=== PATIENT | female | born 1990 | race Caucasian/White ===

== ENCOUNTER 2021-01-22 05:30 | Inpatient (IN) ==
[2021-01-22] MEDS ORDERED: ALBUT/IPRATROP 3MG/0.5MG NEB 3 ML VIAL INH STA (05:42)
[2021-01-22] MEDS ORDERED: SODIUM CHLORIDE 0.9% 1000ML 1,000 ML IV SCH (05:45)
[2021-01-22 06:21] LABS: Basophils # (auto) 0.01 K/uL (0-0.2); Basophils % (auto) 0.1 %; Hematocrit (blood only) 39.8 % (37-47); Hemoglobin 13.3 g/dL (12.0-16.0); Immature Granulocytes # (auto) 0.03 K/uL (0.00-0.02); Immature Granulocytes % (auto) 0.3 %; Lymphocytes # (auto) 2.23 K/uL (1.2-3.4); Mean Corpuscular Hemoglobin 30.6 pg (25-34); Mean Corpuscular Hgb Conc 33.4 g/dL (32-36); Mean Corpuscular Volume 91.7 fL (80-100); Mean Platelet Volume 10.5 fL (7.4-10.4); Monocytes # (auto) 0.29 K/uL (0.11-0.59); Neutrophils # (auto) 7.12 K/uL (1.4-6.5); Neutrophils % (auto) 73.6 %; Platelet Count 192 K/uL (130-400); RDW Coefficient of Variation 12.4 % (11.5-14.5); RDW Standard Deviation 41.8 fL (36.4-46.3); Red Blood Count 4.34 M/uL (4.2-5.4); White Blood Count 9.68 K/uL (4.8-10.8)
[2021-01-22 06:29] LABS: D Dimer 240 ug/L FEU (0-500)
[2021-01-22] MEDS ORDERED: OPTIRAY 320 125ml IV ONE (06:31)
[2021-01-22 06:40] LABS: Albumin Level 2.8 gm/dl (3.4-5.0); BUN Creatinine Ratio 7.1 (10-20); Calcium 8.5 mg/dl (8.5-10.1); Est GFR (African American) 133.8 ml/min; Est GFR (Non-African American) 115.5 ml/min
[2021-01-22 06:43] LABS: Albumin Globulin Ratio 0.6 (0.9-2); Bilirubin,Total 0.5 mg/dl (0.2-1); Globulin 4.7 gm/dl (2.5-4.0); Total Protein 7.5 gm/dl (6.4-8.2)
[2021-01-22 06:51] LABS: Pregnancy Test, Serum Negative (Negative)
[2021-01-22 06:58] LABS: Appearance Urine Clear (Clear); Bilirubin Urine Negative (Negative); Blood Urine Negative (Negative); Color Urine Yellow; Glucose Urine UA Negative (Negative); Ketones Urine Negative (Negative); Leukocyte Esterase Urine Negative (Negative); Nitrite Urine Negative (Negative); Protein Urine Negative (Negative); Specific Gravity Urine 1.004 (1.000-1.030); Urobilinogen Urine Negative (Negative); pH Urine 7.5 (4.5-7.5)
--- NOTE | 2021-01-22 07:16 | CT Scan Report ---
CHEST CTA for PULMONARY ARTERIES CT DOSE: 842.69 mGy.cm HISTORY: Dyspnea TECHNIQUE: Multiaxial CT images of the chest were performed following the intravenous administration of contrast to evaluate the pulmonary arteries. Maximal intensity projection images were also obtaine d. A dose lowering technique was utilized adhering to the principles of ALARA. COMPARISON STUDY: None. FINDINGS: Normal caliber thoracic aorta with no evidence for dissection. Limited views of the upper a bdomen demonstrate hepatic steatosis and a normal spleen. The adrenal glands are unremarkable. Border line mediastinal and hilar lymphadenopathy. This is likely reactive. Normal esophagus. The heart is n ormal in size. No pleural or pericardial effusions. No filling defects within the pulmonary arteries to suggest a pulmonary embolus. No fractures within the visualized osseous structures. The central ai rways are patent. No pneumothorax. There are multifocal patchy groundglass airspace opacities most pr onounced within the upper lobes. This is consistent with a viral pneumonia. IMPRESSION: 1. No evidence for pulmonary embolus. 2. Multifocal bilateral groundglass airspace opacities consistent with a viral pneumonia. ACT 112: Negative or not required by law. Electronically signed by: Chilo Acharya M.D. 01/22/2021 7:14 AM
--- NOTE | 2021-01-22 10:47 | Emergency Department Note ---
ED Visit Note Patient is a 30-year-old female who presented to the ER and was seen and evaluated by Dr. De La Cruz. Patient remained in the ER with discharge in structions in place but was never flipped the DCR. Patient requested to see a doctor and Dr. De La Cruz had gone home at this time. Patient notes that she is feeling worse she does have a headache and diffuse pains. Blood work was reviewed by myself as well as remainder of work-up. BMP along with LFTs bilirubin was under remarkable. Patient did not have a troponin done but EKG was unremarkable. She did have a CT angio which showed infiltrates but no PE. She was ambulated in the room to make sure she did not drop her pulse ox and following this she was discharged as previously set forth by Dr. De La Cruz. .
[2021-01-22] MEDS ORDERED: ACETAMINOPHEN 500 MG TAB PO STA (11:04)
[2021-01-22] MEDS ORDERED: POTASSIUM CHLORIDE CRTAB 20 MEQ TABCR PO STA (11:43)
--- NOTE | 2021-01-22 11:58 | History & Physical Report ---
Date of Service January 22, 2021 Assessment & Plan (1) Pneumonia due to COVID-19 virus: Plan: Given significant CRP 10.7 will give increased dose of dexamethasone 10mg IV today and repeat CRP tomorrow. Will continue dexamethasone 6mg IV daily for now Procalcitonin negative - no further antibiotics required Guaifenesin 1200mg PO BID Encourage proning Avoid further nebulizers due to tachycardia Avoid further aggressive IV fluids - possible reason for currently feeling worse (2) Sinus tachycardia: Plan: No PE. Suspect response to virus rather than significant dehydration given BUN and Cr results Avoid further agressive (3) Hypoxia: Plan: Borderline 93-94% at rest but 85% on minimal exertion Secondary to COVID-19 pneumonia 2 step ordered for tomorrow for possible discharge is stable (4) Nausea: Plan: Ondansetron 4mg q4h PRN Plan: VTE Prophylaxis - Lovenox 40mg SQ daily Diet - regular Disposition - admit to med/surg Admission and Anticipated Discharge Date Admission Date: January 22, 2021 History of Present Illness Chief Complaint: Shortness of breath Primary Care Provider: SCARLETT Mckeon Lynne Arguello is a 30 year old female who presents to the ER due to shortness of breath with known COVID-19 pneumonia. Symptoms started on January 12, 2021, currently day 11 of illness. On 01/14 she was prescribed a medrol dosepak and azithromycin. This is her second ER visit. She was previously seen 4 days previously and treated with 2L NS, ondansetron, acetaminophen, guaifenesin, dexamethasone 10mg IV. She was prescribed a 10 day course of dexamethasone 6mg PO, famotidine and ondansetron. Last few days felt like she was slightly getting worse with her shortness of breath therefore decided to come back to the ER. Had a lot of trouble sleeping last night and shortness of breath on only mild exertion. Stairs especially difficult. Small amount of diarrhea. Headache. Nasal congestion. Tightness in her chest. Nebulizer here made her feel worse. Appetite decreased. Loss and change of taste and smell. No fever, chills, sinus pain or abdominal pain. In the ER on this occasion she was given 1L NSS as concerned about dehydration with tachycardia, CTA negative for pulmonary emboli. She has not taken any dexamethasone today. Initial plan was to discharge home but she desaturates to mid 80s on light exertion therefore she was referred to medicine for admission and ongoing management. Allergies Allergy/AdvReac Type Severity Reaction Status Date / Time oxycodone Allergy Intermediate Nausea/Vomi Verified 01/22/21 16:03 ting Home Medications Medication Instructions Recorded Confirmed Type acetaminophen 500 mg capsule 10,000 mg PO Q6H PRN 01/18/21 01/22/21 History albuterol sulfate 90 mcg/actuation 1 inh INHALATION QID PRN 01/18/21 01/22/21 History aerosol inhaler azithromycin 250 mg tablet 250 mg PO DIRECTED 01/18/21 01/22/21 History dexamethasone 6 mg tablet 6 mg PO DAILY #10 tab 01/18/21 01/22/21 Rx famotidine 20 mg tablet 20 mg PO BID #20 tab 01/18/21 01/22/21 Rx norgestimate 0.18 mg/0.215 mg/0.25 1 tab PO PM 01/18/21 01/22/21 History mg-ethinyl estradiol 25 mcg tablet (Sit-Ya-Pwgmqeuir) ondansetron 4 mg disintegrating 4 mg PO Q6H PRN #14 tab 01/18/21 01/22/21 Rx tablet Past Med/Surg History Medical History Exposure to sexually transmitted disease (STD) History of miscarriage Morbid obesity with BMI of 40.0-44.9, adult Surgical History Hx of oral surgery S/P cholecystectomy Family History Mother Anaplastic astrocytoma Grandmother (Maternal) Colorectal cancer Myocardial infarction Grandfather (Maternal) Myocardial infarction Sister Ovarian cyst Social History Smoking Status: Former smoker Tobacco Type: Cigarettes packs per day: 1.5; Hx Alcohol Use: No Hx Substance Use: No Preferred Language: Spanish Communication Ability: Effective Visual Impairment: No Limitations Hearing Ability: Normal Flute Polisher Required: No Beliefs That Will Affect Care: None marital status: Current Living Situation: Spouse current occupational status: employed Feels Safe at Home: Yes Safety Concerns: Feels Safe At This Time Childhood Exposure to Second-Hand Smoke: No Dental Care, Regularly: Yes Physical Activity Frequency: 1-2 Times per Week Seatbelt Use: always Assistive Devices: Glasses Review of Systems Review of Systems: All systems reviewed & are unremarkable except as noted in HPI & below Physical Exam Constitutional: WD/WN, vitals as above + morbidly obese Eyes: + anicteric sclerae; normal pupil size Respiratory: normal respiratory effort, lungs clear to auscultation Cardiovascular: Rate/Rhythm: regular rhythm and + tachycardic Heart Sounds: no murmur Extremities: normal capillary refill; no pedal edema Gastrointestinal (Abdomen): normal bowel sounds, soft, nontender, no hepatosplenomegaly Musculoskeletal: no cyanosis or clubbing, extremities motor strength 5/5 Skin: no rashes, warm and dry Neurologic: moves all extremities and awake; not confused Psychiatric: A+Ox3, euthymic affect Results & Data Results & Data ([facility]) Vital Signs (Past 12 Hours) Vital Signs Temp Pulse Pulse Pulse Resp Resp BP 01/22/21 11:26 123 H 28 H 01/22/21 11:18 118 H 30 H 01/22/21 10:02 113 H 24 01/22/21 09:00 107 H 21 122/86 01/22/21 08:52 112 H 24 01/22/21 08:01 01/22/21 07:21 36.8 C 134 H 26 H 01/22/21 07:00 123 H 25 H 132/86 01/22/21 06:40 01/22/21 06:13 20 01/22/21 06:06 01/22/21 06:05 103 H 16 112/80 01/22/21 05:36 36 C L 116 H 18 107/80 BP Pulse Ox Pulse Ox 01/22/21 11:26 128/100 91 01/22/21 11:18 88 L 01/22/21 10:02 93 01/22/21 09:00 93 01/22/21 08:52 132/100 92 01/22/21 08:01 91 01/22/21 07:21 124/91 91 01/22/21 07:00 93 01/22/21 06:40 91 01/22/21 06:13 98 01/22/21 06:06 93 01/22/21 06:05 100 01/22/21 05:36 92 Diagnostic Findings XR chest 1V portable HISTORY: 30 years-old Female Chest Pain acute atypical chest pain COMPARISON: Chest radiograph 08/29/2008 TECHNIQUE: Portable AP view of the chest FINDINGS: Cardiomediastinal and hilar silhouettes are within normal limits. Mild coarsening of interstitium is likely secondary to patient body habitus. No pneumothorax, pleural effusion, airspace consolidation or overt pulmonary edema. The bones of the chest appear grossly intact. IMPRESSION: No acute process. CHEST CTA for PULMONARY ARTERIES CT DOSE: 842.69 mGy.cm HISTORY: Dyspnea TECHNIQUE: Multiaxial CT images of the chest were performed following the intravenous administration of contrast to evaluate the pulmonary arteries. Maximal intensity projection images were also obtained. A dose lowering technique was utilized adhering to the principles of ALARA. COMPARISON STUDY: None. FINDINGS: Normal caliber thoracic aorta with no evidence for dissection. Limited views of the upper abdomen demonstrate hepatic steatosis and a normal spleen. The adrenal glands are unremarkable. Borderline mediastinal and hilar lymphadenopathy. This is likely reactive. Normal esophagus. The heart is normal in size. No pleural or pericardial effusions. No filling defects within the pulmonary arteries to suggest a pulmonary embolus. No fractures within the visualized osseous structures. The central airways are patent. No pneumothorax. There are multifocal patchy groundglass airspace opacities most pronounced within the upper lobes. This is consistent with a viral pneumonia. IMPRESSION: 1. No evidence for pulmonary embolus. 2. Multifocal bilateral groundglass airspace opacities consistent with a viral pneumonia. Medications Administered ER medications given: NSS 1L bolus Duonebs ECG Indication: SOB/dyspnea Rate (beats per minute): 114 Rhythm: sinus tachycardia Findings: no acute ischemic change Comparison ECG Date: from (January 18, 2021) Change: no significant change Code Status & VTE Plan Code Status Full VTE Prophylaxis Plan VTE Prophylaxis will be ordered: Yes PG Care Time/CCT Total # of Minutes Spent Total Time Spent with Patient: Total time spent is greater than 50% in coordination of care (as documented) at patient's floor/unit and/or counseling patient: Coding Level of Care Code 57021 Initial Inpt Care Lvl 2 Diagnoses Pneumonia due to COVID-19 virus U07.1; J12.82 Sinus tachycardia R00.0 Hypoxia R09.02 Nausea R11.0
[2021-01-22] MEDS ORDERED: dexAMETHasone 10 MG in SYRINGE 0 ML IV STA (13:04)
[2021-01-22] MEDS ORDERED: DEXAMETHASONE SOD INJ 4 MG/ML VIAL IV STA (13:06)
--- NOTE | 2021-01-22 18:18 | Emergency Department Note ---
History of Present Illness General Chief complaint: Respiratory Problems Stated complaint: COVID+,FEVER,BREATHING TROUBLE Time Seen by Provider: 01/22/21 05:44 Source: patient and RN notes reviewed Mode of arrival: ambulatory Limitations: no limitations History of Present Illness Provider complaint: Covid, shortness of breath Maximum Pain Intensity: 4 This patient is a 30-year-old female who presents emergency department with complaints of worsening shortness of breath after being diagnosed with Covid. Patient states she developed symptoms about 10 days ago, tested positive for days ago. Yesterday she developed worsening shortness of breath. She has been taking dexamethasone and azithromycin as well as albuterol without significant improvement. Patient has had some fevers, body aches and fatigue. She has had some occasional diarrhea but denies any vomiting. She complains of decreased appetite. Home Medications Medication Instructions Recorded Confirmed Type acetaminophen 500 mg capsule 10,000 mg PO Q6H PRN 01/18/21 01/22/21 History albuterol sulfate 90 mcg/actuation 1 inh INHALATION QID PRN 01/18/21 01/22/21 History aerosol inhaler azithromycin 250 mg tablet 250 mg PO DIRECTED 01/18/21 01/22/21 History dexamethasone 6 mg tablet 6 mg PO DAILY #10 tab 01/18/21 01/22/21 Rx famotidine 20 mg tablet 20 mg PO BID #20 tab 01/18/21 01/22/21 Rx norgestimate 0.18 mg/0.215 mg/0.25 1 tab PO PM 01/18/21 01/22/21 History mg-ethinyl estradiol 25 mcg tablet ([id number]) ondansetron 4 mg disintegrating 4 mg PO Q6H PRN #14 tab 01/18/21 01/22/21 Rx tablet Allergies Allergy/AdvReac Type Severity Reaction Status Date / Time oxycodone Allergy Intermediate Nausea/Vomi Verified 01/22/21 16:03 ting Past Med/Surg History Medical History Exposure to sexually transmitted disease (STD) History of miscarriage Morbid obesity with BMI of 40.0-44.9, adult Surgical History Hx of oral surgery S/P cholecystectomy Family History Mother Anaplastic astrocytoma Grandmother (Maternal) Colorectal cancer Myocardial infarction Grandfather (Maternal) Myocardial infarction Sister Ovarian cyst Social History Smoking Status: Former smoker Tobacco Type: Cigarettes packs per day: 1.5; Hx Alcohol Use: No Hx Substance Use: No Preferred Language: Taiwanese Communication Ability: Effective Visual Impairment: No Limitations Hearing Ability: Normal Beliefs That Will Affect Care: None marital status: current occupational status: employed Feels Safe at Home: Yes Childhood Exposure to Second-Hand Smoke: No Dental Care, Regularly: Yes Physical Activity Frequency: 1-2 Times per Week Seatbelt Use: always Review of Systems See HPI for pertinent positives & negatives. and A total of 10 systems reviewed and were otherwise negative Physical Exam Vital Signs Vital Signs - 24 hr 01/22/21 05:36 01/22/21 05:55 01/22/21 06:05 Temperature 36 C L Temperature Source Temporal Artery Scan Pulse Rate 116 H 103 H Pulse Rate [Exercises] Pulse Rate [Left Finger] Pulse Rate from SpO2 Sensor 102 H Pulse Rhythm [Left Finger] Pulse Strength [Left Finger] Respiratory Rate 18 16 Respiratory Rate [Exercises] Respiratory Effort / Characteristics Non-Labored Spontaneous Short of Breath Respiratory Depth Normal Blood Pressure 107/80 112/80 Blood Pressure [Left Arm] Blood Pressure Mean 89 90 Blood Pressure Mean [Left Arm] Blood Pressure Position [Left Arm] Pulse Oximetry 92 100 Pulse Oximetry [Exercises] Oxygen Delivery Method Room Air Room Air Room Air Sepsis Recent Fever Within 48 Hours No Sepsis New/Unexplained Change in Mental Status No Sepsis Action Taken by Nursing No Action Required 01/22/21 06:06 01/22/21 06:13 01/22/21 06:40 Temperature Temperature Source Pulse Rate Pulse Rate [Exercises] Pulse Rate [Left Finger] Pulse Rate from SpO2 Sensor 131 H Pulse Rhythm [Left Finger] Pulse Strength [Left Finger] Respiratory Rate 20 Respiratory Rate [Exercises] Respiratory Effort / Characteristics Spontaneous Respiratory Depth Blood Pressure Blood Pressure [Left Arm] Blood Pressure Mean Blood Pressure Mean [Left Arm] Blood Pressure Position [Left Arm] Pulse Oximetry 93 98 91 Pulse Oximetry [Exercises] Oxygen Delivery Method Room Air Room Air Room Air Sepsis Recent Fever Within 48 Hours Sepsis New/Unexplained Change in Mental Status Sepsis Action Taken by Nursing 01/22/21 07:00 01/22/21 07:21 01/22/21 08:01 Temperature 36.8 C Temperature Source Oral Pulse Rate 123 H Pulse Rate [Exercises] Pulse Rate [Left Finger] 134 H Pulse Rate from SpO2 Sensor 113 H Pulse Rhythm [Left Finger] Regular Pulse Strength [Left Finger] Normal Respiratory Rate 25 H 26 H Respiratory Rate [Exercises] Respiratory Effort / Characteristics Non-Labored Respiratory Depth Normal Blood Pressure 132/86 Blood Pressure [Left Arm] 124/91 Blood Pressure Mean 101 134 Blood Pressure Mean [Left Arm] 102 Blood Pressure Position [Left Arm] Pulse Oximetry 93 91 91 Pulse Oximetry [Exercises] Oxygen Delivery Method Room Air Sepsis Recent Fever Within 48 Hours Sepsis New/Unexplained Change in Mental Status Sepsis Action Taken by Nursing 01/22/21 08:52 01/22/21 09:00 01/22/21 10:02 Temperature Temperature Source Pulse Rate 107 H 113 H Pulse Rate [Exercises] Pulse Rate [Left Finger] 112 H Pulse Rate from SpO2 Sensor 107 H Pulse Rhythm [Left Finger] Regular Pulse Strength [Left Finger] Normal Respiratory Rate 24 21 24 Respiratory Rate [Exercises] Respiratory Effort / Characteristics Non-Labored Respiratory Depth Normal Blood Pressure 122/86 Blood Pressure [Left Arm] 132/100 Blood Pressure Mean 98 Blood Pressure Mean [Left Arm] 110 Blood Pressure Position [Left Arm] Sitting Pulse Oximetry 92 93 93 Pulse Oximetry [Exercises] Oxygen Delivery Method Room Air Sepsis Recent Fever Within 48 Hours Sepsis New/Unexplained Change in Mental Status Sepsis Action Taken by Nursing 01/22/21 11:14 01/22/21 11:18 01/22/21 11:26 Temperature Temperature Source Pulse Rate 120 H Pulse Rate [Exercises] 118 H Pulse Rate [Left Finger] 123 H Pulse Rate from SpO2 Sensor Pulse Rhythm [Left Finger] Pulse Strength [Left Finger] Respiratory Rate 25 H 28 H Respiratory Rate [Exercises] 30 H Respiratory Effort / Characteristics Non-Labored Respiratory Depth Normal Blood Pressure 128/100 Blood Pressure [Left Arm] 128/100 Blood Pressure Mean 109 Blood Pressure Mean [Left Arm] 109 Blood Pressure Position [Left Arm] Pulse Oximetry 91 91 Pulse Oximetry [Exercises] 88 L Oxygen Delivery Method Room Air Room Air Sepsis Recent Fever Within 48 Hours Sepsis New/Unexplained Change in Mental Status Sepsis Action Taken by Nursing 01/22/21 12:03 01/22/21 13:00 01/22/21 13:39 Temperature Temperature Source Pulse Rate 98 H 124 H Pulse Rate [Exercises] Pulse Rate [Left Finger] 118 H Pulse Rate from SpO2 Sensor Pulse Rhythm [Left Finger] Regular Pulse Strength [Left Finger] Respiratory Rate 31 H 28 H 26 H Respiratory Rate [Exercises] Respiratory Effort / Characteristics Short of Breath Respiratory Depth Normal Blood Pressure Blood Pressure [Left Arm] Blood Pressure Mean Blood Pressure Mean [Left Arm] Blood Pressure Position [Left Arm] Pulse Oximetry 91 94 90 Pulse Oximetry [Exercises] Oxygen Delivery Method Room Air Room Air Sepsis Recent Fever Within 48 Hours Sepsis New/Unexplained Change in Mental Status Sepsis Action Taken by Nursing 01/22/21 14:00 01/22/21 17:06 01/22/21 18:05 Temperature 37.2 C Temperature Source Oral Pulse Rate 118 H Pulse Rate [Exercises] Pulse Rate [Left Finger] 86 114 H Pulse Rate from SpO2 Sensor Pulse Rhythm [Left Finger] Regular Regular Pulse Strength [Left Finger] Respiratory Rate 33 H 24 24 Respiratory Rate [Exercises] Respiratory Effort / Characteristics Non-Labored Respiratory Depth Normal Normal Blood Pressure Blood Pressure [Left Arm] 128/92 Blood Pressure Mean Blood Pressure Mean [Left Arm] 104 Blood Pressure Position [Left Arm] Pulse Oximetry 91 91 90 Pulse Oximetry [Exercises] Oxygen Delivery Method Room Air Room Air Room Air Sepsis Recent Fever Within 48 Hours Sepsis New/Unexplained Change in Mental Status Sepsis Action Taken by Nursing Vital signs reviewed. General: Well-appearing 30 yo female, in no significant distress. HEENT: No scleral icterus, PERRLA, neck supple. Atraumatic. Cardiovascular: Tachycardic rate and regular rhythm, no extra sounds. Pulmonary: Coarse breath sounds to auscultation bilaterally, slightly increased l work of breathing. Maintaining oxygen saturations at rest on room air around 90 to 91% Abdomen: Soft,obese, nontender, nondistended, positive bowel sounds. Musculoskeletal: Atraumatic, no peripheral edema. Neurologic: Patient awake alert and oriented x 3. Skin: Warm, dry, no rash Course Administered Medications Discontinued Medications Acetaminophen (Acetaminophen 500 Mg Tab) 1,000 mg PO NOW STA Stop: 01/22/21 11:05 Last Admin: 01/22/21 11:14 Dose: 1,000 mg Documented by: [id number] Albuterol (Albut/Ipratrop 3mg/0.5mg Neb 3 Ml Vial) 3 ml INH NOW STA Stop: 01/22/21 05:43 Last Admin: 01/22/21 06:13 Dose: 3 ml Documented by: [id number] Dexamethasone (Dexamethasone Sod Inj 4 Mg/Ml Vial) 10 mg IV NOW STA Stop: 01/22/21 13:07 Last Admin: 01/22/21 13:28 Dose: 10 mg Documented by: [id number] Sodium Chloride (Nss 1000ml) 1,000 mls @ 999 mls/hr IV .Q1H1M ISAAC Stop: 01/22/21 06:45 Last Infusion: 01/22/21 07:26 Dose: 0 mls/hr Documented by: [id number] Admin: 01/22/21 06:01 Dose: 999 mls/hr Documented by: [id number] Ioversol (Optiray 320 125ml) 119 ml IV ONCE ONE Stop: 01/22/21 06:32 Last Admin: 01/22/21 06:35 Dose: 119 ml Documented by: [id number] Potassium Chloride (Potassium Chloride Crtab 20 Meq Tabcr) 40 meq PO NOW STA Stop: 01/22/21 11:44 Last Admin: 01/22/21 13:28 Dose: 40 meq Documented by: [id number] Medical Decision Making Differential Diagnosis Reactive airway disease, pneumonia, pneumothorax, COPD, CHF, infections, cardiac ischemia, pulmonary embolism, musculoskeletal, gastrointestinal, as well as other pathologies. Medical Records Attestation: I reviewed the patient's medical records. Home Medications Current Medication List: was personally reviewed by me Laboratory Data Attestation: I reviewed the patient's lab results. Result diagrams: 01/22/21 05:55 01/22/21 05:55 Lab Results 01/22/21 01/22/21 01/22/21 Range/Units 05:55 05:55 05:55 WBC 9.68 (4.8-10.8) K/uL RBC 4.34 (4.2-5.4) M/uL Hgb 13.3 (12.0-16.0) g/dL Hct 39.8 (37-47) % MCV 91.7 (80-100) fL MCH 30.6 (25-34) pg MCHC 33.4 (32-36) g/dL RDW Std Deviation 41.8 (36.4-46.3) fL RDW Coeff of Tyra 12.4 (11.5-14.5) % Plt Count 192 (130-400) K/uL MPV 10.5 H (7.4-10.4) fL Immature Gran % (Auto) 0.3 % Neut % (Auto) 73.6 % Lymph % (Auto) 23.0 % [place] % (Auto) 3.0 % Eos % (Auto) 0.0 % Baso % (Auto) 0.1 % Neut # (Auto) 7.12 H (1.4-6.5) K/uL Lymph # (Auto) 2.23 (1.2-3.4) K/uL [place] # (Auto) 0.29 (0.11-0.59) K/uL Eos # (Auto) 0.00 (0-0.5) K/uL Baso # (Auto) 0.01 (0-0.2) K/uL Immature Gran # (Auto) 0.03 H (0.00-0.02) K/uL D-Dimer 240 (0-500) ug/L FEU Sodium 134 L (136-145) mmol/L Potassium 3.0 L (3.5-5.1) mmol/L Chloride 103 (98-107) mmol/L Carbon Dioxide 28 (21-32) mmol/L Anion Gap 3.0 (3-11) BUN 5 L (7-18) mg/dl Creatinine 0.70 (0.6-1.2) mg/dl Est Cr Clr Drug Dosing 135.0 ml/min Est GFR ( Amer) 133.8 ml/min Est GFR (Non-Af Amer) 115.5 ml/min BUN/Creatinine Ratio 7.1 L (10-20) Glucose 107 H (70-99) mg/dl Calcium 8.5 (8.5-10.1) mg/dl Total Bilirubin 0.5 (0.2-1) mg/dl AST 20 (15-37) U/L ALT 27 (12-78) U/L Alkaline Phosphatase 57 (45-117) U/L C-Reactive Protein (0-0.29) mg/dl Total Protein 7.5 (6.4-8.2) gm/dl Albumin 2.8 L (3.4-5.0) gm/dl Globulin 4.7 H (2.5-4.0) gm/dl Albumin/Globulin Ratio 0.6 L (0.9-2) Procalcitonin (0-0.5) ng/ml HCG, Qual (Negative) Urine Color Urine Appearance (Clear) Urine pH (4.5-7.5) Ur Specific [place] (1.000-1.030) Urine Protein (Negative) Urine Glucose (UA) (Negative) Urine Ketones (Negative) Urine Blood (Negative) Urine Nitrite (Negative) Urine Bilirubin (Negative) Urine Urobilinogen (Negative) Ur Leukocyte Esterase (Negative) 01/22/21 01/22/21 01/22/21 Range/Units 05:55 06:11 06:11 WBC (4.8-10.8) K/uL RBC (4.2-5.4) M/uL Hgb (12.0-16.0) g/dL Hct (37-47) % MCV (80-100) fL MCH (25-34) pg MCHC (32-36) g/dL RDW Std Deviation (36.4-46.3) fL RDW Coeff of Tyra (11.5-14.5) % Plt Count (130-400) K/uL MPV (7.4-10.4) fL Immature Gran % (Auto) % Neut % (Auto) % Lymph % (Auto) % [place] % (Auto) % Eos % (Auto) % Baso % (Auto) % Neut # (Auto) (1.4-6.5) K/uL Lymph # (Auto) (1.2-3.4) K/uL [place] # (Auto) (0.11-0.59) K/uL Eos # (Auto) (0-0.5) K/uL Baso # (Auto) (0-0.2) K/uL Immature Gran # (Auto) (0.00-0.02) K/uL D-Dimer (0-500) ug/L FEU Sodium (136-145) mmol/L Potassium (3.5-5.1) mmol/L Chloride (98-107) mmol/L Carbon Dioxide (21-32) mmol/L Anion Gap (3-11) BUN (7-18) mg/dl Creatinine (0.6-1.2) mg/dl Est Cr Clr Drug Dosing ml/min Est GFR ( Amer) ml/min Est GFR (Non-Af Amer) ml/min BUN/Creatinine Ratio (10-20) Glucose (70-99) mg/dl Calcium (8.5-10.1) mg/dl Total Bilirubin (0.2-1) mg/dl AST (15-37) U/L ALT (12-78) U/L Alkaline Phosphatase (45-117) U/L C-Reactive Protein 10.70 H (0-0.29) mg/dl Total Protein (6.4-8.2) gm/dl Albumin (3.4-5.0) gm/dl Globulin (2.5-4.0) gm/dl Albumin/Globulin Ratio (0.9-2) Procalcitonin < 0.05 (0-0.5) ng/ml HCG, Qual Negative (Negative) Urine Color Urine Appearance (Clear) Urine pH (4.5-7.5) Ur Specific [place] (1.000-1.030) Urine Protein (Negative) Urine Glucose (UA) (Negative) Urine Ketones (Negative) Urine Blood (Negative) Urine Nitrite (Negative) Urine Bilirubin (Negative) Urine Urobilinogen (Negative) Ur Leukocyte Esterase (Negative) 01/22/21 Range/Units 06:44 WBC (4.8-10.8) K/uL RBC (4.2-5.4) M/uL Hgb (12.0-16.0) g/dL Hct (37-47) % MCV (80-100) fL MCH (25-34) pg MCHC (32-36) g/dL RDW Std Deviation (36.4-46.3) fL RDW Coeff of Tyra (11.5-14.5) % Plt Count (130-400) K/uL MPV (7.4-10.4) fL Immature Gran % (Auto) % Neut % (Auto) % Lymph % (Auto) % [place] % (Auto) % Eos % (Auto) % Baso % (Auto) % Neut # (Auto) (1.4-6.5) K/uL Lymph # (Auto) (1.2-3.4) K/uL [place] # (Auto) (0.11-0.59) K/uL Eos # (Auto) (0-0.5) K/uL Baso # (Auto) (0-0.2) K/uL Immature Gran # (Auto) (0.00-0.02) K/uL D-Dimer (0-500) ug/L FEU Sodium (136-145) mmol/L Potassium (3.5-5.1) mmol/L Chloride (98-107) mmol/L Carbon Dioxide (21-32) mmol/L Anion Gap (3-11) BUN (7-18) mg/dl Creatinine (0.6-1.2) mg/dl Est Cr Clr Drug Dosing ml/min Est GFR ( Amer) ml/min Est GFR (Non-Af Amer) ml/min BUN/Creatinine Ratio (10-20) Glucose (70-99) mg/dl Calcium (8.5-10.1) mg/dl Total Bilirubin (0.2-1) mg/dl AST (15-37) U/L ALT (12-78) U/L Alkaline Phosphatase (45-117) U/L C-Reactive Protein (0-0.29) mg/dl Total Protein (6.4-8.2) gm/dl Albumin (3.4-5.0) gm/dl Globulin (2.5-4.0) gm/dl Albumin/Globulin Ratio (0.9-2) Procalcitonin (0-0.5) ng/ml HCG, Qual (Negative) Urine Color Yellow Urine Appearance Clear (Clear) Urine pH 7.5 (4.5-7.5) Ur Specific [place] 1.004 (1.000-1.030) Urine Protein Negative (Negative) Urine Glucose (UA) Negative (Negative) Urine Ketones Negative (Negative) Urine Blood Negative (Negative) Urine Nitrite Negative (Negative) Urine Bilirubin Negative (Negative) Urine Urobilinogen Negative (Negative) Ur Leukocyte Esterase Negative (Negative) Imaging Data Radiologist's Impression: Chest CTA 01/22/21 05:42 CHEST CTA for PULMONARY ARTERIES CT DOSE: 842.69 mGy.cm HISTORY: Dyspnea TECHNIQUE: Multiaxial CT images of the chest were performed following the intravenous administration of contrast to evaluate the pulmonary arteries. Maximal intensity projection images were also obtained. A dose lowering technique was utilized adhering to the principles of ALARA. COMPARISON STUDY: None. FINDINGS: Normal caliber thoracic aorta with no evidence for dissection. Limited views of the upper abdomen demonstrate hepatic steatosis and a normal spleen. The adrenal glands are unremarkable. Borderline mediastinal and hilar lymphadenopathy. This is likely reactive. Normal esophagus. The heart is normal in size. No pleural or pericardial effusions. No filling defects within the pulmonary arteries to suggest a pulmonary embolus. No fractures within the visualized osseous structures. The central airways are patent. No pneumothorax. There are multifocal patchy groundglass airspace opacities most pronounced within the upper lobes. This is consistent with a viral pneumonia. IMPRESSION: 1. No evidence for pulmonary embolus. 2. Multifocal bilateral groundglass airspace opacities consistent with a viral pneumonia. ACT 112: Negative or not required by law. Electronically signed by: Chilo Acharya M.D. 01/22/2021 7:14 AM ECG Data Attestation: I personally reviewed and interpreted this ECG as follows: Indication: + tachycardia Rate (beats per minute): 114 Rhythm: + sinus tachycardia ECG Intervals/blocks: + Prolonged QT (454) ECG [place]: + Normal ECG ST segments: + Normal ST segments ECG Findings: + LVH; no PACs or no PVCs Blood Pressure Blood Pressure Findings: Normal blood pressure Blood Pressure Disposition: did not require urgent referral MDM Narrative This patient was evaluated and appeared to be in no significant distress. IV access was obtained and laboratory work was drawn. An order for cardiac monitoring was placed and the patient is noted to be in a sinus tachycardia at 119 bpm. Patient was hydrated with normal saline solution and a DuoNeb treatment was given. Patient is already taking dexamethasone. CT angiogram was performed due to the tachycardia, Covid and borderline hypoxia. There is no evidence of PE. Patient's case was referred to the hospitalist service for further management due to hypoxia with exertion. Please see their notes for further details. Impression & Plan Pneumonia due to COVID-19 virus, Hypoxia, Morbid obesity with BMI of 45.0-49.9, adult Discharge Plan Visit Data Chief Complaint: Respiratory Problems Stated Complaint: COVID+,FEVER,BREATHING TROUBLE ED Provider: Yola De La Cruz Discharge Problem: Pneumonia due to COVID-19 virus, Hypoxia, Morbid obesity with BMI of 45.0-49.9, adult Discharge Instructions [place]/Other Patient Handouts: 2019-nCoV, COVID-19 Home Care, Preventing the Spread of ... Forms Stand Alone Forms: My [facility] Prescriptions Prescriptions: No Action acetaminophen [Tylenol Extra Strength] 500 mg Capsule 10,000 mg PO Q6H PRN (Reason: Pain) RF: 0 azithromycin 250 mg tablet 250 mg PO DIRECTED RF: 0 albuterol sulfate 90 mcg/actuation HFA aerosol inhaler 1 inh inhalation QID PRN (Reason: Sob/ wheezing) RF: 0 norgestimate-ethinyl estradiol [Tpb-Xz-Koglbjuhj] 0.18/0.215/0.25 mg-25 mcg tablet 1 tab PO PM RF: 0 dexamethasone 6 mg tablet 6 mg PO DAILY Qty: 10 RF: 0 famotidine 20 mg tablet 20 mg PO BID Qty: 20 RF: 0 ondansetron 4 mg tablet,disintegrating 4 mg PO Q6H PRN (Reason: nausea and vomiting) Qty: 14 RF: 0 Referrals Referrals: Kari Keenan CRNP [Primary Care Provider] -
[2021-01-22] MEDS ORDERED: ALUMINUM/MAGNESIUM SUSP 30 ML UDC PO PRN (21:36)
[2021-01-22] MEDS ORDERED: ONDANSETRON INJ 2 MG/ML 2 ML VIAL IV PRN (21:36)
[2021-01-22] MEDS ORDERED: ENOXAPARIN INJ 40 MG/0.4 ML SYR SQ SCH (22:00)
[2021-01-22] MEDS ORDERED: HYDROcodone/HOMATROPINE SYRUP 5MG/1.5MG 5ML UDP PO PRN (22:41)
[2021-01-23] MEDS: [UNRECOGNIZED DRUG - REMARK] SCH ×3 (03:15→16:26)
[2021-01-23 05:26] LABS: Basophils # (auto) 0.03 K/uL (0-0.2); Basophils % (auto) 0.5 %; Hematocrit (blood only) 39.5 % (37-47); Hemoglobin 12.9 g/dL (12.0-16.0); Immature Granulocytes # (auto) 0.07 K/uL (0.00-0.02); Immature Granulocytes % (auto) 1.2 %; Lymphocytes # (auto) 1.46 K/uL (1.2-3.4); Lymphocytes % (auto) 25.9 %; Mean Corpuscular Hemoglobin 29.3 pg (25-34); Mean Corpuscular Hgb Conc 32.7 g/dL (32-36); Mean Corpuscular Volume 89.8 fL (80-100); Mean Platelet Volume 9.9 fL (7.4-10.4); Monocytes # (auto) 0.34 K/uL (0.11-0.59); Neutrophils # (auto) 3.73 K/uL (1.4-6.5); Neutrophils % (auto) 66.4 %; Platelet Count 202 K/uL (130-400); RDW Coefficient of Variation 12.4 % (11.5-14.5); White Blood Count 5.63 K/uL (4.8-10.8)
--- NOTE | 2021-01-23 05:27 | Electrocardiogram Report ---
Test Reason : Blood Pressure : / mmHG Vent. Rate : 114 BPM Atrial Rate : 114 BPM P-R Int : 152 ms QRS Dur : 072 ms QT Int : 330 ms P-R-T Axes : 025 000 023 degrees QTc Int : 454 ms Sinus tachycardia Moderate voltage criteria for LVH, may be normal variant Borderline ECG When compared with ECG of 18-JAN-2021 13:03, No significant change was found Confirmed by Chintan Hernandez ([id number]) on 01/23/2021 5:27:41 AM Referred By: REFERRED SELF Confirmed By:Chintan Hernandez
[2021-01-23 05:57] LABS: BUN Creatinine Ratio 10.7 (10-20); C Reactive Protein 14.5 mg/dl (0-0.29); Calcium 8.5 mg/dl (8.5-10.1); Creatinine Clr Calc Pharmacy 147.4 ml/min; Est GFR (African American) 137.8 ml/min; Est GFR (Non-African American) 118.9 ml/min; Potassium 3.9 mmol/L (3.5-5.1)
[2021-01-23] MEDS: guaiFENesin 600 MG TABCR PO SCH ×2 (08:37→21:05)
[2021-01-23] MEDS: dexAMETHasone 6 MG in SYRINGE 0 ML IV SCH (08:37)
[2021-01-23] MEDS: FAMOTIDINE 20 MG TAB PO SCH (08:37)
--- NOTE | 2021-01-23 14:40 | Hospitalist Progress Note ---
Date of Service January 23, 2021 Assessment & Plan (1) Pneumonia due to COVID-19 virus: Plan: - CRP uptrending from 10.7 to 14.50. - Continue dexamethasone 10mg IV - Procal negative, uptrending CRP - CTA: No evidence for pulmonary embolus. Multifocal bilateral groundglass airspace opacities consistent with a viral pneumonia. - Cr/BUN wnl - Not requiring high flow, not a toculizumab candidate at this time - Given negative procal, CTA consistent with PNA suspect 2/2 worsening COVID. May consider abx coverage if CRP uptrending, defer at this time. Trend CRP overnight - SpO2 goal >90% - Lovenox covid dosing DVT ppx (2) Sinus tachycardia: Plan: - No PE. - Appears euvolemic, CR/BUN wnl - Suspect 2/2 COVID pna - Defer additional IVF at this time, PO as tolerated (3) Hypoxia: Plan: -Borderline 93-94% at rest but 85% on minimal exertion -Secondary to COVID-19 pneumonia -2 step ordered, pt currently remaining for observation given worsening CRP and ill apperance (4) Nausea: Plan: Ondansetron 4mg q4h PRN Plan: VTE Prophylaxis - Lovenox 40mg SQ daily Diet - regular Disposition - admit to med/surg Admission and Anticipated Discharge Date Admission Date: January 22, 2021 Subjective Sx began ~01/11. Dex/azithro as outpt. Feeling worse last day or two. Feels short of breath worsened with exertion and very anxious. Feels globally fatigued, weak. +diarrhea. -ab pain, -appetite decrease. Review of Systems Review of Systems: Constitutional: Endorses fatigue. Feels cold. No shaking chills. Eyes: Denies double vision, vision change, eye pain ENT: Denies ear pain, sore throat, sinus pain Cardiovascular: Denies Chest pain, chest pressure, palpitations, extremity swelling Respiratory: See HPI. Gastrointestinal: Denies abdominal pain, nausea, vomiting, constipation. + diarrhea Genitourinary: Denies pain with urination, urinary urgency, urinary frequency Musculoskeletal: Denies focal weakness, muscle aches/pain, joint aches/pain Integumentary:Denies rash, lesions, bruising Neurological: Denies numbness, tingling, focal weakness Physical Exam Physical Exam: General: Appears ill, anxious. Nontoxic. A&Ox3. Obese HEENT: Atraumatic, normocephalic. PERLAA. Visual acuity and hearing intact. Pulm: Bibasial crackles, moderate air movement, coarse. -wheeze. Symmetrical chest rise. No increase work of breathing. No respiratory distress. Cardiac: tachycardic, -mrg. Radial pulses intact and symmetrical. Abdominal: Nontender, nondistended, soft. BS present. Skin: Warm, dry. Moving all extremities equally. Results & Data Results & Data ([facility]) Vital Signs (Past 12 Hours) Vital Signs Pulse Pulse Resp BP BP Pulse Ox 01/23/21 13:00 101 H 25 H 01/23/21 12:00 90 32 H 95 01/23/21 11:00 103 H 24 99 01/23/21 10:10 95 H 23 132/91 95 01/23/21 10:09 115 H 18 93 01/23/21 09:00 107 H 19 01/23/21 08:35 92 H 22 128/84 92 01/23/21 08:00 74 15 96 01/23/21 05:36 80 16 137/99 95 01/23/21 04:01 75 17 94 01/23/21 03:00 74 18 94 01/23/21 02:53 80 18 93 PG Care Time/CCT Total # of Minutes Spent Total Time Spent with Patient: Total time spent is greater than 50% in coordination of care (as documented) at patient's floor/unit and/or counseling patient: Coding Level of Care Code 65822 Subseq Hosp Care Lvl 2 Diagnoses Pneumonia due to COVID-19 virus U07.1; J12.82 Sinus tachycardia R00.0 Hypoxia R09.02 Nausea R11.0
[2021-01-23] MEDS: ENOXAPARIN INJ 40 MG/0.4 ML SYR SQ SCH (20:51)
[2021-01-24 06:34] LABS: Hemoglobin 13.1 g/dL (12.0-16.0); Mean Corpuscular Hemoglobin 29.6 pg (25-34); Mean Corpuscular Hgb Conc 33.6 g/dL (32-36); Mean Corpuscular Volume 88.2 fL (80-100); Mean Platelet Volume 10.2 fL (7.4-10.4); Platelet Count 273 K/uL (130-400); RDW Coefficient of Variation 12.1 % (11.5-14.5); RDW Standard Deviation 39.3 fL (36.4-46.3); Red Blood Count 4.42 M/uL (4.2-5.4); White Blood Count 6.43 K/uL (4.8-10.8)
[2021-01-24 07:09] LABS: Albumin Level 2.8 gm/dl (3.4-5.0); BUN Creatinine Ratio 18.6 (10-20); C Reactive Protein 7.14 mg/dl (0-0.29); Calcium 8.7 mg/dl (8.5-10.1); Creatinine Clr Calc Pharmacy 152.1 ml/min; Est GFR (African American) 139.3 ml/min; Est GFR (Non-African American) 120.2 ml/min; Potassium 3.6 mmol/L (3.5-5.1)
[2021-01-24 07:12] LABS: Albumin Globulin Ratio 0.6 (0.9-2); Bilirubin,Total 0.4 mg/dl (0.2-1); Globulin 4.7 gm/dl (2.5-4.0); Total Protein 7.5 gm/dl (6.4-8.2)
[2021-01-24 07:27] LABS: Basophils # (auto) 0.03 K/uL (0-0.2); Basophils % (auto) 0.5 %; Eosinophils # (auto) 0.01 K/uL (0-0.5); Eosinophils % (auto) 0.2 %; Immature Granulocytes # (auto) 0.13 K/uL (0.00-0.02); Lymphocytes # (auto) 2.82 K/uL (1.2-3.4); Lymphocytes % (auto) 43.9 %; Monocytes # (auto) 0.52 K/uL (0.11-0.59); Monocytes % (auto) 8.1 %; Neutrophils # (auto) 2.92 K/uL (1.4-6.5); Neutrophils % (auto) 45.3 %
[2021-01-24] MEDS: ENOXAPARIN INJ 40 MG/0.4 ML SYR SQ SCH ×2 (10:15→20:20)
[2021-01-24] MEDS: dexAMETHasone 6 MG in SYRINGE 0 ML IV SCH (10:15)
[2021-01-24] MEDS: FAMOTIDINE 20 MG TAB PO SCH (10:15)
[2021-01-24] MEDS: guaiFENesin 600 MG TABCR PO SCH ×2 (10:15→20:20)
[2021-01-24] MEDS: ACETAMINOPHEN 325 MG TAB PO PRN (10:20)
--- NOTE | 2021-01-24 17:59 | Hospitalist Progress Note ---
Date of Service January 24, 2021 Assessment & Plan (1) Pneumonia due to COVID-19 virus: Plan: - CRP now downtrending - Continue dexamethasone IV - Procal negative - CTA: No evidence for pulmonary embolus. Multifocal bilateral groundglass airspace opacities consistent with a viral pneumonia. - Cr/BUN wnl - Not requiring high flow, not a toculizumab candidate at this time - SpO2 goal >90% - Lovenox covid dosing DVT ppx With CRP downtrending, patient appears clinically stable at this time. Suspect will have gradually resolving oxygen requirements, respiratory consulted for two-step (2) Sinus tachycardia: Plan: Improved - No PE. - Appears euvolemic, CR/BUN wnl - Suspect 2/2 COVID pna - Defer additional IVF at this time, PO as tolerated (3) Hypoxia: Plan: -Continues to desaturate with exertion -Secondary to COVID-19 pneumonia -2 step ordered, pending eval for home oxygen (4) Nausea: Plan: Ondansetron 4mg q4h PRN Plan: VTE Prophylaxis - Lovenox 40mg SQ daily Diet - regular Disposition - admit to med/surg Admission and Anticipated Discharge Date Admission Date: January 22, 2021 Jeanna Batista is seen at the bedside this afternoon. She is extremely nervous, reports she feels she is breathing "okay "but she is worried about what her progression with Covid will look like and what she should. She is concerned that she is not getting better initially on steroids, per the reports she feels okay in the room. Discussed clinical course, and that she may need to go home with oxygen but as long as she is requiring no more than 3-4 L with exertion she will likely be able to go home with home oxygen and close follow-up. CRP downtrending, discussed with patient. No nausea/vomiting/diarrhea. Review of Systems Review of Systems: Constitutional: Endorses fatigue, denies fever/chills Eyes: Denies vision change ENT: Denies ear pain, sore throat, sinus pain Cardiovascular: Denies Chest pain, chest pressure, palpitations, extremity swelling Respiratory: Endorses some shortness of breath with exertion, shortness of breath without using oxygen. Endorses intermittent cough. Gastrointestinal: Denies abdominal pain, nausea, vomiting, constipation, diarrhe a Genitourinary: Denies dysuria Musculoskeletal: Denies acute focal weakness, muscle aches/pain, joint aches/pain Integumentary:Denies acute rash, lesions, bruising Neurological: Endorses intermittent headache, denies numbness/tingling Physical Exam Physical Exam: General: Appears ill, anxious. Nontoxic. A&Ox3. Obese HEENT: Atraumatic, normocephalic. PERLAA. Visual acuity and hearing intact. Pulm: Bibasilar crackles, moderate air movement, coarse. -wheeze/-rales. Symmetrical chest rise. No increased work of breathing. No respiratory distress. Cardiac: Regular rate and rhythm, -mrg. Radial pulses intact and symmetrical. Abdominal: Nontender, nondistended, soft. BS present. Skin: Warm, dry. Moving all extremities equally. Results & Data Results & Data ([facility]) Vital Signs (Past 12 Hours) Vital Signs Temp Pulse Resp BP Pulse Ox 01/24/21 15:46 36.6 C 79 20 113/79 95 01/24/21 07:06 36.5 C 86 18 118/80 93 PG Care Time/CCT Total # of Minutes Spent Total Time Spent with Patient: Total time spent is greater than 50% in coordination of care (as documented) at patient's floor/unit and/or counseling patient: Coding Level of Care Code 78467 Subseq Hosp Care Lvl 2 Diagnoses Pneumonia due to COVID-19 virus U07.1; J12.82 Sinus tachycardia R00.0 Hypoxia R09.02 Nausea R11.0
[2021-01-24] MEDS: PATIENT'S OWN ORAL CONTRACEPTIVE PO SCH (21:30)
[2021-01-25] MEDS: guaiFENesin 600 MG TABCR PO SCH (07:38)
[2021-01-25] MEDS: dexAMETHasone 6 MG in SYRINGE 0 ML IV SCH (07:38)
[2021-01-25] MEDS: ENOXAPARIN INJ 40 MG/0.4 ML SYR SQ SCH (07:39)
[2021-01-25] MEDS: PATIENT'S OWN ORAL CONTRACEPTIVE PO SCH (07:39)
[2021-01-25] MEDS: FAMOTIDINE 20 MG TAB PO SCH (07:46)
[2021-01-25] MEDS: ACETAMINOPHEN 325 MG TAB PO PRN (10:59)
[2021-01-25 11:00] LABS: Hematocrit (blood only) 39.8 % (37-47); Hemoglobin 13.5 g/dL (12.0-16.0); Mean Corpuscular Hemoglobin 29.7 pg (25-34); Mean Corpuscular Hgb Conc 33.9 g/dL (32-36); Mean Corpuscular Volume 87.5 fL (80-100); Mean Platelet Volume 10.2 fL (7.4-10.4); Platelet Count 317 K/uL (130-400); RDW Coefficient of Variation 12.2 % (11.5-14.5); Red Blood Count 4.55 M/uL (4.2-5.4); White Blood Count 7.75 K/uL (4.8-10.8)
[2021-01-25 11:15] LABS: Basophils # (auto) 0.03 K/uL (0-0.2); Basophils % (auto) 0.4 %; Eosinophils # (auto) 0.03 K/uL (0-0.5); Eosinophils % (auto) 0.4 %; Immature Granulocytes # (auto) 0.29 K/uL (0.00-0.02); Immature Granulocytes % (auto) 3.7 %; Lymphocytes # (auto) 2.59 K/uL (1.2-3.4); Lymphocytes % (auto) 33.4 %; Monocytes % (auto) 5.2 %; Neutrophils # (auto) 4.41 K/uL (1.4-6.5); Neutrophils % (auto) 56.9 %; Polychromasia 1+
[2021-01-25 11:24] LABS: BUN Creatinine Ratio 14.6 (10-20); Calcium 8.9 mg/dl (8.5-10.1); Creatinine Clr Calc Pharmacy 127.5 ml/min; Est GFR (African American) 125.1 ml/min; Potassium 3.8 mmol/L (3.5-5.1)
--- NOTE | 2021-01-25 13:50 | Discharge Summary ---
Date of Service January 25, 2021 Admission HPI Per Admitting Provider Lynne Arguello is a 30 year old female who presents to the ER due to shortness of breath with known COVID-19 pneumonia. Symptoms started on January 12, 2021, currently day 11 of illness. On 01/14 she was prescribed a medrol dosepak and azithromycin. This is her second ER visit. She was previously seen 4 days previously and treated with 2L NS, ondansetron, acetaminophen, guaifenesin, dexamethasone 10mg IV. She was prescribed a 10 day course of dexamethasone 6mg PO, famotidine and ondansetron. Last few days felt like she was slightly getting worse with her shortness of breath therefore decided to come back to the ER. Had a lot of trouble sleeping last night and shortness of breath on only mild exertion. Stairs especially difficult. Small amount of diarrhea. Headache. Nasal congestion. Tightness in her chest. Nebulizer here made her feel worse. Appetite decreased. Loss and change of taste and smell. No fever, chills, sinus pain or abdominal pain. In the ER on this occasion she was given 1L NSS as concerned about dehydration with tachycardia, CTA negative for pulmonary emboli. She has not taken any dexamethasone today. Initial plan was to discharge home but she desaturates to mid 80s on light exertion therefore she was referred to medicine for admission and ongoing management. Admission Exam Per Admitting Provider Constitutional: WD/WN, vitals as above + morbidly obese Eyes: + anicteric sclerae; normal pupil size Respiratory: normal respiratory effort, lungs clear to auscultation Cardiovascular: Rate/Rhythm: regular rhythm and + tachycardic Heart Sounds: no murmur Extremities: normal capillary refill; no pedal edema Gastrointestinal (Abdomen): normal bowel sounds, soft, nontender, no hepatosplenomegaly Musculoskeletal: no cyanosis or clubbing, extremities motor strength 5/5 Skin: no rashes, warm and dry Neurologic: moves all extremities and awake; not confused Psychiatric: A+Ox3, euthymic affect Principal Diagnosis COVID-19 Discharge Exam General: A&Ox3. NAD. Cooperative. Obese habitus. HEENT: Atraumatic, normocephalic. Visual acuity and hearing grossly intact. Pulm: Bibasilar crackles, moderate to good air movement, without wheezes. Symmetrical chest rise. No increase work of breathing. No respiratory distress. Cardiac: RRR, -mrg. Radial pulses intact and symmetrical. Abdominal: Nontender, nondistended, soft. BS present. Discharge Data Allergies Allergy/AdvReac Type Severity Reaction Status Date / Time oxycodone Allergy Intermediate Nausea/Vomi Verified 01/22/21 16:03 ting Consultations 01/22/21 11:37 ED Decision to Admit Stat Ordered Studies 01/22/21 05:42 CT angio chest PE protocol Stat Hospital Course (1) Pneumonia due to COVID-19 virus: Na Arguello is a 30-year-old female who presents to the hospital with shortness of breath and concern for worsening Covid. She was treated with steroids and discharged continue home oxygen as noted below. Pneumonia, 2/2 COVID-19 Covid positive - CTA: No evidence for pulmonary embolus. Multifocal bilateral groundglass airspace opacities consistent with a viral pneumonia. - Cr/BUN wnl - Not requiring high flow, not a toculizumab candidate Patient with negative pro-Radames, but uptrending CRP from 10-14. Held for observation concerning up trended CRP potentially representing bacterial superinfection, CRP down trended and patient clinically improved. No antibiotics indicated at discharge. Was discharged to complete a 10-day course of dexamethasone as outpatient. - SpO2 goal >90%. Two-step completed on day of discharge, patient discharged to continue home oxygen with follow-up to PCP. - Lovenox covid dosing DVT ppx was used. No signs of DVT during admission. (2) Sinus tachycardia: Improved - No PE. - Appears euvolemic, CR/BUN wnl - Suspect 2/2 COVID pna - Defer additional IVF during admission, PO as tolerated (3) Hypoxia: -Continued to desaturate with exertion -Secondary to COVID-19 pneumonia -Patient discharged with home oxygen following two-step (4) Nausea: Ondansetron 4mg q4h PRN was used Total Time Total Time Spent Total Time Spent (In Minutes): Total time spent on day of discharge approximately 30 minutes including direct clinical care, review of labs of images, and documentation Discharge Plan Discharge Items Patient Disposition: Home - Self-Care Reason For Visit: COVID+,FEVER,BREATHING TROUBLE Discharge Diagnosis: Acute hypoxic respiratory failure 2/2 Covid Activity: Per Instructions section Non-emergency contact: Primary Care Provider Call non-emergency contact if: you have any medication questions, your symptoms worsen, your pain is concerning for you and you have a fever Follow-up/Referrals: Kari Keenan CRNP [Primary Care Provider] - Diet: Regular Addtl Attending Provider Instructions: You are seen in the hospital for acute shortness of breath due to Covid pneumonia. You had a residual oxygen requirement at time of discharge. Some patients with COVID require oxygen for several days to weeks as they recover from COVID, and may also have fatigue that lasts for several weeks. You are being discharged with home oxygen, please use oxygen by nasal cannula as needed to maintain an oxygen level greater than 90%. Please note that 100% is not normal, and if your oxygen levels are greater than 96% you should decrease your oxygen. You have been prescribed an extension of your dexamethasone, steroid, treatment. Please take dexamethasone 6 mg by mouth for 8 additional days. A follow-up appointment is being scheduled for you with your primary care provider, Kari Keenan. You should be seen within 1 week and received confirmation of a visit or virtual visit within 48 hours. If you do not receive a call to confirm your visit, please call our office directly at [phone]. If you develop any new or worsening symptoms including fever, chills, sweats, chest pain, chest pressure, difficulty breathing, uncontrolled nausea/vomiting, rash, wheezing, passing out or nearly passing out, bleeding, black/bloody bowel movements, or other new or concerning symptoms please call your primary care physician at [phone], or call 911 for re-evaluation in the emergency department if you are very concerned. Pending Studies at Discharge: No Stand-Alone Forms: [employer], Smoking Cessation Medications and DC Order Prescriptions: New dexamethasone [Decadron] 6 mg tablet 6 mg PO DAILY Qty: 8 RF: 0 Continued acetaminophen 500 mg Capsule 10,000 mg PO Q6H PRN (Reason: Pain) RF: 0 albuterol sulfate 90 mcg/actuation HFA aerosol inhaler 1 inh inhalation QID PRN (Reason: Sob/ wheezing) RF: 0 norgestimate-ethinyl estradiol [Zes-Ri-Vkcywkwyp] 0.18/0.215/0.25 mg-25 mcg tablet 1 tab PO PM RF: 0 famotidine 20 mg tablet 20 mg PO BID Qty: 20 RF: 0 ondansetron 4 mg tablet,disintegrating 4 mg PO Q6H PRN (Reason: nausea and vomiting) Qty: 14 RF: 0 Discontinued azithromycin 250 mg tablet 250 mg PO DIRECTED RF: 0 dexamethasone 6 mg tablet 6 mg PO DAILY Qty: 10 RF: 0 Discharge Orders: Discharge Order (Routine); Ordered 01/25/21 Ordered By: Keven Flores Admission Data Admit Date/Time: 01/22/21 12:18 Attending Provider: Keven Flores Admit Provider: Braden Mueller Primary Care Provider: Kari Keenan Other Providers: Braden Mueller Coding Level of Care Code D/C DAY MANAGEMENT >30 MINS Diagnoses Pneumonia due to COVID-19 virus U07.1; J12.82 Sinus tachycardia R00.0 Hypoxia R09.02 Nausea R11.0
== END 2021-01-25 15:11 | disposition home or self-care (01) | DRG 177 ==
LOC: ED 05:30 → SUATTDRO 12:18 → EDINP 12:18 → 3W 01-23 17:50